=== PATIENT | male | born 1950 | race Caucasian/White ===

== ENCOUNTER 2025-07-31 19:06 | Emergency (ER) | payer MEDICARE, SELFPAY ==
--- NOTE | 2025-07-31 19:18 | ED.GENMED ---
History of Present Illness
General
Chief Complaint: Fainting/Passed Out
Source: patient
Exam Limitations: none
Time Seen by Provider: 07/31/25 19:18
History of Present Illness
History of Present Illness:
75-year-old male presents via EMS after syncopal episode at a family gathering. He states he was standing for a couple hours talking had a couple sips of wine and started to feel dizzy and weak and lightheaded. He sat down and subsequently passed
out. He woke up pale and sweaty. There is no preceding chest pain. He has a history of hypertension. He has known murmur. He is here visiting from [place]. He denies chest pain or shortness of breath. Denies leg swelling or calf pain.
No other complaints
Phy Exam
Physical Exam
Physical Exam:
General: Well-appearing male no acute respiratory distress
HEENT: Normal cephalic atraumatic
Heart: Regular rate and rhythm holosystolic ejection murmur noted
Lungs: Clear no wheeze
Abdomen soft nontender
Extremities: No cyanosis, edema, calf tenderness
Course
Orders/Labs/Results
Orders:
Orders
07/31/25 19:09
EKG [Electrocardiogram (*1)] Urgent
Reason for Study: Syncope
EKG- Treatment ONCE
07/31/25 19:31
0.9% Sodium Chloride 1000 ml [Nss] 1,000 ml IV BOLUS
07/31/25 19:35
Complete Blood Count/With Diff Urgent
Comprehensive Metabolic Panel Urgent
Abnormal Lab Results
07/31/25
19:35
WBC 15.2 H 10^3/uL
(4.8-10.8)
RBC 4.31 L 10^6/uL
(4.70-6.10)
MCV 102.8 H fL
(80.0-94.0)
MCH 33.4 H pg
(27.0-31.0)
MCHC 32.5 L g/dL
(33.0-37.0)
Abs Immat Gran (auto) 0.1 H 10^3/uL
(0-0.05)
Absolute Neuts (auto) 9.8 H 10^3/uL
(1.4-6.5)
Absolute Monos (auto) 2.2 H 10^3/uL
(0.1-0.6)
Lymphocytes % 18.6 L %
(20.5-51.1)
Monocytes % 14.3 H %
(1.7-9.3)
BUN 35 H mg/dl
(9-20)
Creatinine 1.4 H mg/dL
(0.7-1.3)
Glucose 137 H mg/dl
(70-99)
Total Protein 8.4 H g/dl
(6.3-8.2)
Albumin 5.1 H g/dl
(3.5-5.0)
07/31/25 19:35
07/31/25 19:35
Vital Signs
Initial and Last Documented VS:
Initial Vital Signs
Pulse Resp
77 16
07/31/25 19:19 07/31/25 19:19
Last Documented Vital Signs
Temp Pulse Resp BP Pulse Ox
97.6 F 90 19 142/63 99
07/31/25 19:22 07/31/25 21:00 07/31/25 21:00 07/31/25 21:00 07/31/25 21:00
MDM/Problems Addressed
Differential Diagnosis Includes:
Patient presents after syncopal episode. Consider vasovagal versus arrhythmia versus orthostasis versus dehydration. He has a murmur on exam suggestive of aortic stenosis patient is aware of this
Will check labs EKG hydrate
*Pulse Oximetry
Patient hypoxic: no
*Critical Care Note
Total Time (30-74mins, 75-104mins- exclusive of procedures): Not Applicable
Update Note
Update Note:
EKG shows sinus rhythm with a rate of 80 no ischemic changes
Labs reviewed leukocytosis of 15.2 nonspecific likely reactive from syncopal episode. Creatinine is 1.4. Patient states he has been told his kidney functions have been abnormal. He feels back to baseline. He was hydrated here. No arrhythmias
noted on monitor. Suspect vasovagal episode. No indication for admission stable for discharge
ED Attending Note
-
Portions of this chart may have been created with voice recognition software.� Occasional wrong word or��sound alike� substitutions may have occurred due to the inherent limitations of voice recognition software.
Discharge Plan
Departure
Patient Disposition: Home (Routine Discharge)
Date of Disposition: 07/31/25
Time of Disposition: 21:05
Patient with high blood pressure during this ER visit?: No
Discharge Problem:
Syncope
Instructions: Syncope (Fainting) (DC)
Prescriptions:
No Action
Unobtainable
0
Referrals:
UNKNOWN - PT DOES,NOT KNOW [Family Provider]
Activity Restrictions/Additional Instructions:
Rest. Stay hydrated. Please follow-up with your doctor when you return home. Return if worse otherwise
Interventions
Interventions:
*Risk Screen - Suicide Last Done: 07/31/25 19:13
*General Assessment Last Done: 07/31/25 19:13
*Neglect/Abuse Screening Last Done: 07/31/25 19:13
*ED- Fall Risk Assessment Last Done: 07/31/25 19:19
*ED COVID-19 Vaccine History Last Done: 07/31/25 19:19
*ED Influenza Vaccine History Last Done: 07/31/25 19:19
ED- Cardiac Assessment Last Done: 07/31/25 19:20
ED- Neurological Assessment Last Done: 07/31/25 19:20
Discharge Date and Time
Print Language: AZERI
[2025-07-31 19:20] VITALS: BMI 22.8
[2025-07-31 19:21] VITALS: BP 167/53
[2025-07-31] MEDS: NSS 1000 IV (19:36)
[2025-07-31 19:43] LABS: Hematocrit 44.3 % (39.0-52.0); Hemoglobin 14.4 g/dL (13.0-18.0); Mean Corp Hgb Conc. 32.5 g/dL (33.0-37.0); Mean Corpuscular Volume 102.8 fL (80.0-94.0); Nucleated Red Blood Cells % 0 % (-); Platelet Count 366 10^3/uL (130-400); Red Cell Dist. Width 12.4 % (11.5-14.5)
[2025-07-31 20:00] VITALS: BP 130/86
[2025-07-31 20:05] LABS: ALT (SGPT) 33 U/L (0-50); AST (SGOT) 31 U/L (17-59); Albumin 5.1 g/dl (3.5-5.0); Alkaline Phosphatase 95 U/L (38-126); Blood Urea Nitrogen 35 mg/dl (9-20); Calcium 10.2 mg/dl (8.4-10.2); Carbon Dioxide 24 mmol/L (22-30); Chloride 101 mmol/L (98-107); Estimated Creatinine Clearance 45 ml/min; Glucose 137 mg/dl (70-99); Sodium 137 mmol/L (135-145); Total Protein 8.4 g/dl (6.3-8.2); eGFR 51.77
[2025-07-31 20:18] LABS: Potassium 4.4 mmol/L (3.5-5.1)
[2025-07-31 21:00] VITALS: BP 142/63
== END 2025-07-31 21:25 | disposition home or self-care (01) ==
LOC: EMR 19:06
PROVIDERS: Physician Assistant; EMERGENCY PHYSICIAN Emergency Medicine
DX: R55 Syncope and collapse (principal); I10 Essential (primary) hypertension
CPT/HCPCS: 99283; 80053; 85025; 93005